=== PATIENT | female | born 1990 | race Two or more races ===

== ENCOUNTER 2021-12-02 05:50 | Inpatient (IN) | payer OTHER ==
[~2021-12-02] VITALS: Ht 163.8 cm; Wt 55.8 kg
[2021-12-02] MEDS ORDERED: FOLIC ACID1 MG PO (06:35)
[2021-12-02] MEDS ORDERED: PRENATAL TABLE1 EAC1 PO (06:35)
== END 2021-12-04 13:05 | disposition home or self-care (01) | DRG 768 ==
LOC: LDR 05:50 → OB/GYN 12:19
PROVIDERS: ADMIT Obstetrics & Gynecology; ATTEND Obstetrics & Gynecology
PROC: 10E0XZZ Delivery of Products of Conception, External Approach (ICD-10-PCS; principal; 2021-12-02)
PROC: 0DQR0ZZ Repair Anal Sphincter, Open Approach (ICD-10-PCS; 2021-12-02)
PROC: 4A1HXCZ Monitoring of Products of Conception, Cardiac Rate, External Approach (ICD-10-PCS; 2021-12-02)
DX: O70.21 Third degree perineal laceration during delivery, IIIa (principal); Z37.0 Single live birth; O42.02 Full-term premature rupture of membranes, onset of labor within 24 hours of rupture; Z3A.38 38 weeks gestation of pregnancy; Z20.822 Contact with and (suspected) exposure to COVID-19